=== PATIENT | female | born 1975 | race Caucasian/White ===

== ENCOUNTER 2020-05-08 01:58 | Emergency (ER) | payer SELFPAY ==
[~2020-05-08] VITALS: Ht 162.6 cm; Wt 73.0 kg
[2020-05-08 02:43] LABS: HEMATOCRIT. 40.6 % (36.0-48.0); HEMOGLOBIN. 13.7 g/dL (12.0-16.0); MEAN CORPUSCULAR HEMOGLOBIN 29.2 pg (28.0-32.0); MEAN CORPUSCULAR VOLUME 86.6 fL (81.0-99.0); MEAN PLATELET VOLUME 7.4 fl (7.4-10.4); PLATELET 346 x1000/uL (130-400); RED BLOOD CELL COUNT 4.69 mill/uL (4.2-5.4); RED CELL DISTRIBUTION WIDTH 12.9 % (11.6-14.6)
[2020-05-08 02:50] LABS: CHLORIDE 96 mEq/L (98-107)
[2020-05-08 02:55] LABS: ETHANOL BLOOD < 10 mg/dL
[2020-05-08 03:16] VITALS: BP 160/82
[2020-05-08 04:45] LABS: PLATELET ESTIMATE NORMAL
== END 2020-05-08 03:17 | disposition home or self-care (01) ==
LOC: ER 02:11
DX: F15.188 Other stimulant abuse with other stimulant-induced disorder (principal); E03.9 Hypothyroidism, unspecified; R03.0 Elevated blood-pressure reading, without diagnosis of hypertension; D72.829 Elevated white blood cell count, unspecified
CPT/HCPCS: 36415; 80053; 80307; 80320; 80329; 84443; 85025; 93005; 99284; G0480